=== PATIENT | male | born 1970 | race Caucasian/White ===

== ENCOUNTER 2016-10-09 09:03 | Day surgery (SDC) | payer BC, OTHER ==
[2016-10-05 10:35] VITALS: BMI 20.7
[2016-10-09] MEDS ORDERED: PROPOFOL 20 ML ONE ×2 (09:16)
[2016-10-09 11:09] VITALS: TEMP 98.1
[2016-10-09 11:11] VITALS: BP 105/64; PULSE 80
--- NOTE | 2016-10-11 14:50 | PATH ---
Surgical Pathology Report Patient Name: JARED PEREZ [facility]. Rec. #: [id number] /Age/Gender: 1970 (Age: 46) / M Account: [id number] Location: Taken: 10/09/2016 Received: 10/09/2016 Reported: 10/11/2016 Physicians: Johan Dietrich M.D. Specimen(s) Received A: BX COLON TRANSVERSE B: BX SIGMOID Clinical History Rule out colon cancer Polyps Final Diagnosis A. TRANSVERSE, POLYP, POLYPECTOMY: TUBULAR ADENOMA. B. SIGMOID, POLYP, POLYPECTOMY: TUBULAR ADENOMA. Electronically Signed Irma Owens M.D. Gross Description A. Received in formalin, labeled "transverse" is a dukes, irregular portion of soft tissue measuring 0.7 cm. in greatest dimension. The specimen is submitted in toto in one cassette. B. Received in formalin, labeled "sigmoid" is a dukes-brown, polypoid portion of soft tissue measuring 0.6 cm. in greatest dimension. The specimen is submitted in toto in one cassette. 10/10/2016 [facility]10/10/2016
== END 2016-10-09 10:50 | disposition home or self-care (01) ==
LOC: FASU-ENDO 09:03
PROVIDERS: ATTEND Internal Medicine Gastroenterology
PROC: 0DBL8ZX Excision of Transverse Colon, Via Natural or Artificial Opening Endoscopic, Diagnostic (ICD-10-PCS; principal; 2016-10-09 09:50)
PROC: 0DBN8ZX Excision of Sigmoid Colon, Via Natural or Artificial Opening Endoscopic, Diagnostic (ICD-10-PCS; 2016-10-09 09:50)
DX: D12.3 Benign neoplasm of transverse colon (principal); D12.5 Benign neoplasm of sigmoid colon; R10.32 Left lower quadrant pain
CPT/HCPCS: 88305-TC

== ENCOUNTER 2019-02-06 07:19 | Day surgery (SDC) | payer BC, OTHER ==
[2019-01-30 15:04] VITALS: BMI 22.1
[2019-02-06] MEDS ORDERED: LIDOCAINE HCL/PF 2% SDV 5ML VIAL ONE (07:56)
[2019-02-06] MEDS ORDERED: PROPOFOL 20 ML ONE ×2 (07:56)
[2019-02-06 08:44] VITALS: TEMP 97.6
[2019-02-06 09:07] VITALS: BP 117/78; PULSE 62
--- NOTE | 2019-02-07 18:03 | PATH ---
Surgical Pathology Report Patient Name: JARED PEREZ [facility]. Rec. #: [id number] /Age/Gender: 1970 (Age: 49) / M Account: [id number] Location: [facility] Taken: 02/06/2019 Received: 02/06/2019 Reported: 02/07/2019 Physicians: Johan Dietrich M.D. Specimen(s) Received POLYP SIGMOID COLON Clinical History Postoperative diagnosis: Polyp Final Diagnosis SIGMOID COLON, POLYP, BIOPSY: HYPERPLASTIC POLYP. Electronically Signed Lucy Jaime M.D. Gross Description Received in formalin, labeled "polyp sigmoid colon" is a dukes, irregular portion of soft tissue measuring 0.4 cm. in greatest dimension. The specimen is submitted in toto in one cassette. [facility]/02/06/2019 [facility]/02/06/2019
== END 2019-02-06 09:20 | disposition home or self-care (01) ==
LOC: FASU-ENDO 07:19
PROVIDERS: ATTEND Internal Medicine Gastroenterology
PROC: 0DBN8ZX Excision of Sigmoid Colon, Via Natural or Artificial Opening Endoscopic, Diagnostic (ICD-10-PCS; principal; 2019-02-06 08:19)
DX: Z86.010 Personal history of colon polyps (principal); K63.5 Polyp of colon
CPT/HCPCS: 88305-TC